=== PATIENT | female | born 1995 | race Caucasian/White ===

== ENCOUNTER 2017-05-22 09:51 | Emergency (ER) | payer BC, OTHER ==
[~2017-05-22] VITALS: Ht 157.5 cm; Wt 52.0 kg
[2017-05-22 10:08] VITALS: TEMP 36.8; Ht 157.5 cm; Wt 52.0 kg
[2017-05-22] MEDS ORDERED: SODIUM CHLORIDE 0.9% 1000ML 1,000 ML IV STA (10:49)
[2017-05-22] MEDS ORDERED: KETOROLAC TROMETHAMINE 30 MG/ML VIAL IV STA (10:49)
[2017-05-22] MEDS ORDERED: OPTIRAY 320 IV PRN (11:15)
[2017-05-22 11:26] LABS: BASO % 0.2 %; BASO ABS # 0.03 K/uL (0-0.2); COMPLETE YES; HEMATOCRIT 39.1 % (37-47); IG% 0.2 %; LYMPH % 10.6 %; LYMPH ABS # 1.28 K/uL (1.2-3.4); MEAN CELL VOLUME 93.1 fL (80-100); MEAN CORPUSCULAR HEMOGLOBIN 30.5 pg (25-34); MEAN CORPUSCULAR HGB CONC 32.7 g/dl (32-36); MEAN PLATELET VOLUME 9.8 fL (7.4-10.4); MONO % 10.5 %; NEUT % 77.5 %; PLATELET COUNT 258 K/uL (130-400); WHITE BLOOD COUNT 12.08 K/uL (4.8-10.8)
--- NOTE | 2017-05-22 11:44 | DIAGNOSTIC IMAGING REPORT ---
CHEST ONE VIEW PORTABLE CLINICAL HISTORY: Fever. Sepsis. COMPARISON STUDY: Chest radiograph November 07, 2014. FINDINGS: Lung volumes are normal. No pneumothorax or pleural effusion is present. There is no consolidation. Pulmonary vascularity is normal. Cardiomediastinal silhouette is unremarkable. IMPRESSION: No acute cardiopulmonary findings. Electronically signed by: Moe Ellre M.D. 05/22/2017 11:42 AM Dictated Date/Time: 05/22/2017 11:42 AM
[2017-05-22 11:54] LABS: BUN/CREATININE RATIO 21.3 (10-20); C-REACTIVE PROTEIN 2.45 mg/dl (0-0.29); CREATININE 0.82 mg/dl (0.60-1.20); POTASSIUM 3.9 mmol/L (3.5-5.1)
--- NOTE | 2017-05-22 13:13 | DIAGNOSTIC IMAGING REPORT ---
CT OF THE NECK WITH CONTRAST CLINICAL HISTORY: Swollen lymph nodes. Evaluate for parotitis. COMPARISON STUDY: No previous studies for comparison. TECHNIQUE: Axial images and neck were obtained following intravenous injection of 119 cc of Optiray 320 IV. FINDINGS: Visualized portions of the intracranial contents are unremarkable. Mastoid air cells are clear. Mucous retention cysts within the maxillary sinuses are noted. There is mild mucosal thickening of the sinuses. Major vasculature of the neck is patent. There is symmetric enlargement and hypervascularity of the parotid, submandibular and sublingual glands with associated moderate infiltration that extends into the mid to lower neck. There is no abscess. There is mild enlargement of the tonsils which results in mild airway narrowing. Epiglottis is normal. Lung apices are clear. Skeletal structures are unremarkable. Orbits are unremarkable. Prominent bilateral cervical lymph nodes are likely reactive. IMPRESSION: 1. Symmetric enlargement and hypervascularity of the bilateral parotid, submandibular and sublingual glands with moderate associated infiltration/inflammation which extends into the mid to lower neck. The findings represent a nonspecific sialoadenitis. Differential considerations include an infectious process, likely viral, such as mumps. An inflammatory or autoimmune disease such as Sjogren's or IgG4 related sialoadenitis could appear similar. No abscess. 2. Mild tonsillar hypertrophy which results in mild narrowing of the airway. Normal epiglottis. 3. Mild cervical lymphadenopathy which is likely reactive. Electronically signed by: Moe Eller M.D. 05/22/2017 1:12 PM Dictated Date/Time: 05/22/2017 12:55 PM
--- NOTE | 2017-05-22 13:46 | EMERGENCY ROOM VISIT NOTE ---
History Report prepared by Eduard: Adrienne Castellano Under the Supervision of: Dr. Silvino Galloway D.O. First contact with patient: 10:25 Chief Complaint: ILLNESS Stated Complaint: SWOLLEN LYMPH NODES History of Present Illness The patient is a 22 year old female who presents to the Emergency Room with complaints of worsening swelling to the lymph nodes starting yesterday. She woke up yesterday with swelling of her lymph nodes in her neck. She went to [facility] yesterday and was started on amoxicillin for a sinus infection. She woke up in the middle of the night last night with pain around her lymph nodes and worsening swelling. She reports cough, rhinorrhea, congestion, and ear pain. She denies any sore throat. She has had these cold symptoms for the past 3 weeks. Source of History: patient Onset: yesterday Position: neck Quality: other (lymph node swelling) Timing: worsening Associated Symptoms: + cough, No sorethroat Note: Pt reports rhinorrhea, congestion, ear pain. Review of Systems See HPI for pertinent positives & negatives. A total of 10 systems reviewed and were otherwise negative. Past Medical & Surgical Medical Problems: (1) No chronic problems Family History Cancer Diabetes mellitus Hypertension Social History Smoking Status: Never Smoker Alcohol Use: none Housing Status: lives with roommate Occupation Status: [employer] student Current/Historical Medications No Active Prescriptions or Reported Meds Allergies Coded Allergies: No Known Allergies (Unverified , 11/07/14) Physical Exam Vital Signs Date Time Temp Pulse Resp B/P (MAP) Pulse Ox O2 Delivery O2 Flow Rate FiO2 05/22/17 14:36 82 16 103/62 100 Room Air 05/22/17 12:54 78 16 91/58 100 Room Air 05/22/17 10:08 36.8 67 16 121/68 100 Room Air Physical Exam CONSTITUTIONAL/VITAL SIGNS: Reviewed / noted above. GENERAL: Non-toxic in appearance. INTEGUMENTARY: Warm, dry, and Section. HEAD: Normocephalic. EYES: without scleral icterus or trauma. ENT/OROPHARYNX: clear and moist. LYMPHADENOPATHY/NECK: Is supple without meningismus. Bilateral mandibular swelling with tenderness with bilateral anterior lymphadenopathy. RESPIRATORY: Lungs clear and equal. CARDIOVASCULAR: Regular rate and rhythm. GI/ABDOMEN: Soft and nontender. No organomegaly or pulsatile mass. No rebound or guarding. Normal bowel sounds. EXTREMITIES: Warm and well perfused. BACK: No CVA tenderness. NEUROLOGICAL: Intact without focal deficits. PSYCHIATRIC: normal affect. MUSCULOSKELETAL: Normally developed with good muscle tone. Medical Decision & Procedures ER Provider Diagnostic Interpretation: X ray results and stated below per my interpretation and radiology interpretation. Radiology results as stated below per my review and radiologist interpretation: CHEST ONE VIEW PORTABLE CLINICAL HISTORY: Fever. Sepsis. COMPARISON STUDY: Chest radiograph November 07, 2014. FINDINGS: Lung volumes are normal. No pneumothorax or pleural effusion is present. There is no consolidation. Pulmonary vascularity is normal. Cardiomediastinal silhouette is unremarkable. IMPRESSION: No acute cardiopulmonary findings. Electronically signed by: Moe Eller M.D. 05/22/2017 11:42 AM Dictated Date/Time: 05/22/2017 11:[address] OF THE NECK WITH CONTRAST CLINICAL HISTORY: Swollen lymph nodes. Evaluate for parotitis. COMPARISON STUDY: No previous studies for comparison. TECHNIQUE: Axial images and neck were obtained following intravenous injection of 119 cc of Optiray 320 IV. FINDINGS: Visualized portions of the intracranial contents are unremarkable. Mastoid air cells are clear. Mucous retention cysts within the maxillary sinuses are noted. There is mild mucosal thickening of the sinuses. Major vasculature of the neck is patent. There is symmetric enlargement and hypervascularity of the parotid, submandibular and sublingual glands with associated moderate infiltration that extends into the mid to lower neck. There is no abscess. There is mild enlargement of the tonsils which results in mild airway narrowing. Epiglottis is normal. Lung apices are clear. Skeletal structures are unremarkable. Orbits are unremarkable. Prominent bilateral cervical lymph nodes are likely reactive. IMPRESSION: 1. Symmetric enlargement and hypervascularity of the bilateral parotid, submandibular and sublingual glands with moderate associated infiltration/inflammation which extends into the mid to lower neck. The findings represent a nonspecific sialoadenitis. Differential considerations include an infectious process, likely viral, such as mumps. An inflammatory or autoimmune disease such as Sjogren's or IgG4 related sialoadenitis could appear similar. No abscess. 2. Mild tonsillar hypertrophy which results in mild narrowing of the airway. Normal epiglottis. 3. Mild cervical lymphadenopathy which is likely reactive. Electronically signed by: Moe Eller M.D. 05/22/2017 1:12 PM Dictated Date/Time: 05/22/2017 12:55 PM Laboratory Results 05/22/17 11:05 Red Blood Count 4.20, Mean Corpuscular Volume 93.1, Mean Corpuscular Hemoglobin 30.5, Mean Corpuscular Hemoglobin Concent 32.7, Mean Platelet Volume 9.8, Neutrophils (%) (Auto) 77.5, Lymphocytes (%) (Auto) 10.6, Monocytes (%) (Auto) 10.5, Eosinophils (%) (Auto) 1.0, Basophils (%) (Auto) 0.2, Neutrophils # (Auto ) 9.35, Lymphocytes # (Auto) 1.28, Monocytes # (Auto) 1.27, Eosinophils # (Auto ) 0.12, Basophils # (Auto) 0.03 05/22/17 11:05 Test 05/22/17 11:05 White Blood Count 12.08 K/uL (4.8-10.8) Red Blood Count 4.20 M/uL (4.2-5.4) Hemoglobin 12.8 g/dL (12.0-16.0) Hematocrit 39.1 % (37-47) Mean Corpuscular Volume 93.1 fL (80-100) Mean Corpuscular Hemoglobin 30.5 pg (25-34) Mean Corpuscular Hemoglobin Concent 32.7 g/dl (32-36) Platelet Count 258 K/uL (130-400) Mean Platelet Volume 9.8 fL (7.4-10.4) Neutrophils (%) (Auto) 77.5 % Lymphocytes (%) (Auto) 10.6 % Monocytes (%) (Auto) 10.5 % Eosinophils (%) (Auto) 1.0 % Basophils (%) (Auto) 0.2 % Neutrophils # (Auto) 9.35 K/uL (1.4-6.5) Lymphocytes # (Auto) 1.28 K/uL (1.2-3.4) Monocytes # (Auto) 1.27 K/uL (0.11-0.59) Eosinophils # (Auto) 0.12 K/uL (0-0.5) Basophils # (Auto) 0.03 K/uL (0-0.2) RDW Standard Deviation 44.3 fL (36.4-46.3) RDW Coefficient of Variation 13.0 % (11.5-14.5) Immature Granulocyte % (Auto) 0.2 % Immature Granulocyte # (Auto) 0.03 K/uL (0.00-0.02) Erythrocyte Sedimentation Rate 12 mm/hr (0-21) Anion Gap 4.0 mmol/L (3-11) Est Creatinine Clear Calc Drug Dose 85.9 ml/min Estimated GFR () 118.6 Estimated GFR (Non- 102.3 BUN/Creatinine Ratio 21.3 (10-20) Calcium Level 9.0 mg/dl (8.5-10.1) Total Bilirubin 0.4 mg/dl (0.2-1) Direct Bilirubin 0.2 mg/dl (0-0.2) Aspartate Amino Transf (AST/SGOT) 22 U/L (15-37) Alanine Aminotransferase (ALT/SGPT) 19 U/L (12-78) Alkaline Phosphatase 60 U/L (45-117) C-Reactive Protein 2.45 mg/dl (0-0.29) Total Protein 6.8 gm/dl (6.4-8.2) Albumin 3.3 gm/dl (3.4-5.0) Laboratory results as stated above per my review. Medications Administered Medications (Trade) Dose Ordered Sig/Shree Route Start Time Stop Time Status Last Admin Dose Admin Sodium Chloride 1,000 ml @ 999 mls/hr Q1H1M STAT IV 05/22/17 10:49 05/22/17 11:49 DC 05/22/17 10:49 999 MLS/HR Ketorolac Tromethamine (Toradol Inj) 30 mg NOW STAT IV 05/22/17 10:49 05/22/17 10:51 DC 05/22/17 11:15 30 MG Morphine Sulfate (MoRPHine SULFATE INJ) 4 mg NOW STAT IV 05/22/17 14:16 05/22/17 14:17 DC 05/22/17 14:32 4 MG Oxycodone/ Acetaminophen (Percocet 5/ 325MG Home Pack) 1 homepack UD ONCE PO 05/22/17 14:30 05/22/17 14:31 DC 05/22/17 14:32 1 HOMEPACK ED Course 1029: Previous medical records were reviewed. The patient was evaluated in room C10. A complete history and physical examination was performed. 1049: Toradol Inj 30 mg IV, NSS 1000 ml @ 999 mls/hr IV. 1347: On reevaluation, the patient is resting comfortably. I discussed the results and findings with the patient. She verbalized agreement of the treatment plan. She was discharged home. Medical Decision Differential diagnosis: bacterial vs viral infection, dental infection, parotitis, autoimmune disease, cancer. This is a 22-year-old female who presents to the ED with a chief complaint of swollen glands in her neck. The patient states that her symptoms started a few days ago with regards to swollen glands the neck. Prior to this she has had about 3 weeks' worth of congestion, cough and upper respiratory symptoms. She was seen at a local urgent care yesterday and started on amoxicillin. The patient's left side was swollen last night but now it is bilateral. She denies any difficulty swallowing. She does have some discomfort with palpation of the area. On her exam, she has bilateral mandibular swelling and anterior lymphadenopathy. This is clinically consistent with a parotitis. Chest x-ray did not show acute disease. Sedimentation rate was 12, CRP is 2.45. White blood cell count was 12. Complete metabolic panel was unremarkable. CT scan of the soft tissue of the neck reveals findings suggesting symmetrical swelling of the bilateral parotid, submandibular and sublingual gland inflammation. The patient was told results the test. She is felt to be stable for discharge. I suspect the patient's symptoms are related to mumps. I did recommend follow-up with [facility] services as well. I spoke with Zohra from ID here to let her know of the patients likely diagnosis. She will contact the state and also contacted [employer] ID service at [facility]. They want the patient not to go to school for the next 5 days. They will follow-up with her. She was given IV fluids, IV Toradol and IV morphine for pain and discharged with a Percocet . She will continue Amoxil for now. Medication Reconcilliation Current Medication List: was personally reviewed by me Blood Pressure Screening Patient's blood pressure: Normal blood pressure Blood pressure disposition: Did not require urgent referral Impression Primary Impression: Mumps Additional Impression: Parotitis, acute Scribe Attestation The scribe's documentation has been prepared under my direction and personally reviewed by me in its entirety. I confirm that the note above accurately reflects all work, treatment, procedures, and medical decision making performed by me. Departure Information Dispostion Home / Self-Care Prescriptions No Active Prescriptions or Reported Meds Referrals No Doctor, Assigned (PCP) Patient Instructions ED Mumps, My [facility] Additional Instructions Wear a mask when around others for the next 5 days. Do not go to classes or work for the next 5 days. Mumps is highly contagious. Self-isolation is recommended. Follow-up with [facility] within 5-7 days for recheck. Return for worsening or new symptoms. Use Tylenol / Motrin for pain/fever. Problem Qualifiers
[2017-05-22] MEDS ORDERED: MoRPHine SULFATE 4 MG/ML 1 ML CARP\\VIAL IV STA (14:16)
[2017-05-22] MEDS ORDERED: PERCOCET HOME PACK PO ONE (14:30)
[2017-05-22 14:36] VITALS: BP 103/62; PULSE 82; O2SAT 100
== END 2017-05-22 15:04 | disposition home or self-care (01) ==
LOC: C.EDB 09:53 → C.EDC 15:04
DX: B26.9 Mumps without complication (principal); K11.20 Sialoadenitis, unspecified; Z80.9 Family history of malignant neoplasm, unspecified; Z83.3 Family history of diabetes mellitus; Z82.49 Family history of ischemic heart disease and other diseases of the circulatory system